=== PATIENT | female | born 1935 | race Caucasian/White ===

== ENCOUNTER 2017-11-09 11:13 | Day surgery (SDC) | payer MEDICARE, BC ==
[~2017-11-09] VITALS: Ht 152.4 cm; Wt 67.4 kg
[2017-11-09] MEDS ORDERED: normal saline 1000ml 1,000 ML IV ONE (11:35)
[2017-11-09 11:40] VITALS: BP 144/44
[2017-11-09 12:05] LABS: BASOPHILS % (AUTO) 0.3 % (0-1); EOSINOPHILS # (AUTO) 0.1 X10'3 (0-0.9); EOSINOPHILS % (AUTO) 1.5 % (0-6); HEMATOCRIT 32.8 % (35.0-45.0); HEMOGLOBIN 11.1 g/dl (12.0-16.0); LYMPHOCYTES # (AUTO) 1.3 X10'3 (1.1-4.8); LYMPHOCYTES % (AUTO) 17.1 % (21-51); MEAN CORPUSCULAR HEMOGLOBIN 30.7 PG (27.0-31.0); MEAN CORPUSCULAR HGB CONC 33.9 % (33.0-36.5); MEAN CORPUSCULAR VOLUME 90.7 FL (78-98); MEAN PLATELET VOLUME 7.4 FL (7.4-10.4); MONOCYTES # (AUTO) 0.4 X10'3 (0-0.9); MONOCYTES % (AUTO) 5.9 % (2-12); NEUTROPHILS # (AUTO) 5.6 X10'3 (1.8-7.7); NEUTROPHILS % (AUTO) 75.2 % (42-75); PLATELET COUNT 204 X10'3 (140-440); RED BLOOD COUNT 3.61 X10'6 (4.20-5.60); RED CELL DISTRIBUTION WIDTH 13.5 % (11.5-14.5); WHITE BLOOD COUNT 7.5 X10'3 (4.5-11.0)
[2017-11-09 12:17] LABS: ALBUMIN 3.8 G/DL (3.4-5.0); ANION GAP 13 (8-16); BLOOD UREA NITROGEN 32 MG/DL (7-18); BUN/CREATININE RATIO 18.8 (6.6-38.0); CALCIUM 9.1 MG/DL (8.5-10.1); CHLORIDE 106 MMOL/L (99-107); GLUCOSE 106 MG/DL (70-104); POTASSIUM 5.4 MMOL/L (3.5-5.1); SODIUM 142 MMOL/L (135-145); TOTAL CARBON DIOXIDE 23.1 MMOL/L (24-32); eGFR 29 ML/MIN
[2017-11-09] MEDS ORDERED: iohexol 350MG/ML 100ml bottle IV ONE (13:44)
[2017-11-09] MEDS ORDERED: iohexol 350 MG/ML 50ML vial IV ONE (13:44)
[2017-11-09 14:20] VITALS: BP 147/58
[2017-11-09 16:20] VITALS: BP 135/62
[2017-11-09] MEDS ORDERED: ACET1TAB12 PO (16:30)
[2017-11-09] MEDS ORDERED: AMLO1CAP PO (16:30)
[2017-11-09] MEDS ORDERED: AMIO200T57 PO (16:30)
[2017-11-09] MEDS ORDERED: CHOL10002 PO (16:30)
[2017-11-09] MEDS ORDERED: FURO-150 PO (16:30)
[2017-11-09] MEDS ORDERED: APIX5TAB3 PO (16:30)
[2017-11-09] MEDS ORDERED: ALBU8.5H8 INH (16:30)
[2017-11-09] MEDS ORDERED: BUDE10.22 INH (16:30)
[2017-11-09] MEDS ORDERED: ATOR40TA PO (16:30)
[2017-11-09] MEDS ORDERED: LORA1TAB PO (16:30)
== END 2017-11-09 16:20 | disposition home or self-care (01) ==
LOC: SSTAY O 11:13
PROVIDERS: ATTEND Radiology Vascular & Interventional Radiology
DX: I73.9 Peripheral vascular disease, unspecified (principal); I10 Essential (primary) hypertension; Z86.73 Personal history of transient ischemic attack (TIA), and cerebral infarction without residual deficits; E78.5 Hyperlipidemia, unspecified; M81.0 Age-related osteoporosis without current pathological fracture
CPT/HCPCS: 36415; 75635; 80048; 85025; Q9967

== ENCOUNTER 2018-05-10 05:59 | Day surgery (SDC) | payer MEDICARE, BC ==
[2018-05-09 11:22] LABS: BASOPHILS % (AUTO) 0.3 % (0-1); EOSINOPHILS # (AUTO) 0.2 X10'3 (0-0.9); EOSINOPHILS % (AUTO) 3.1 % (0-6); HEMOGLOBIN 11.4 g/dl (12.0-16.0); LYMPHOCYTES # (AUTO) 1.2 X10'3 (1.1-4.8); LYMPHOCYTES % (AUTO) 16.8 % (21-51); MEAN CORPUSCULAR HEMOGLOBIN 30.2 PG (27.0-31.0); MEAN CORPUSCULAR HGB CONC 33.6 % (33.0-36.5); MEAN CORPUSCULAR VOLUME 89.8 FL (78-98); MEAN PLATELET VOLUME 7.4 FL (7.4-10.4); MONOCYTES # (AUTO) 0.5 X10'3 (0-0.9); MONOCYTES % (AUTO) 6.6 % (2-12); NEUTROPHILS # (AUTO) 5.2 X10'3 (1.8-7.7); NEUTROPHILS % (AUTO) 73.2 % (42-75); PLATELET COUNT 229 X10'3 (140-440); RED BLOOD COUNT 3.78 X10'6 (4.20-5.60); WHITE BLOOD COUNT 7.2 X10'3 (4.5-11.0)
[2018-05-09 11:34] LABS: PARTIAL THROMBOPLASTIN TIME 26 SECONDS (22-32); PROTHROMBIN TIME 10.2 SECONDS (9.0-12.0)
[2018-05-09 11:38] LABS: ALBUMIN 3.8 G/DL (3.4-5.0); ANION GAP 7 (8-16); BLOOD UREA NITROGEN 26 MG/DL (7-18); BUN/CREATININE RATIO 16.4 (6.6-38.0); CALCIUM 9.4 MG/DL (8.5-10.1); CHLORIDE 108 MMOL/L (99-107); CREATININE 1.59 MG/DL (0.40-0.90); GLUCOSE 112 MG/DL (70-104); POTASSIUM 5.4 MMOL/L (3.5-5.1); SODIUM 141 MMOL/L (135-145); TOTAL CARBON DIOXIDE 26.3 MMOL/L (24-32); eGFR 31 ML/MIN
[2018-05-10] VITALS (18 sets, daily range): BP systolic 99–160; BP diastolic 39–77
[~2018-05-10] VITALS: Ht 152.4 cm; Wt 65.5 kg
[~2018-05-10 05:59] MED LIST: ACET1TAB12 PO; ALBU8.5H8 INH; AMIO200T40 PO; AMLO1CAP PO; APIX5TAB3 PO; ATOR40TA PO; BUDE10.22 INH; CHOL10002 PO; FURO-150 PO; LORA1TAB PO
[2018-05-10] MEDS ORDERED: ceFAZolin 1,000 MG in NS 100ML IVPB IV ONE (06:30)
[2018-05-10] MEDS ORDERED: midazolam 2 mg/2 ml injection ONE ×2 (07:29→08:30)
[2018-05-10] MEDS ORDERED: ceFAZolin 1GM/D5W- ADD-VANTAGE 50 ML IV ONE (07:30)
[2018-05-10] MEDS ORDERED: ceFAZolin 1000mg inj ONE (07:30)
[2018-05-10] MEDS ORDERED: lidocaine 1%/epinephrine 1:100,000 injection 50ml vial ONE (07:30)
[2018-05-10] MEDS ORDERED: fentaNYL/PF 50MCG/1 ML 2ML syringe ONE ×2 (07:30→09:16)
[2018-05-10] MEDS ORDERED: verapamil 2.5 mg/ml inj IV ONE (08:34)
[2018-05-10] MEDS ORDERED: cephalexin 250mg capsule PO SCH (10:24)
[2018-05-10] MEDS ORDERED: HYDROcodone/acetaminophen 5mg/325mg tablet PO PRN (12:10)
[2018-05-10] MEDS ORDERED: HYDROcodone/acetaminophen 10/325mg tab PO PRN (12:10)
[2018-05-10] MEDS ORDERED: normal saline 500ml IV soln 400 ML IV ONE (12:15)
[2018-05-10] MEDS ORDERED: potassium Cl 20 mEq SR tablet PO STA (13:07)
[2018-05-10] MEDS ORDERED: sodium polystyrene sulfonate 15gm/60ml oral suspension PO ONE (13:15)
[2018-05-10] MEDS ORDERED: ceFAZolin 1GM/D5W- ADD-VANTAGE 50 ML IV SCH (13:50)
[2018-05-10] MEDS ORDERED: ondansetron/PF 4mg/2ml inj IV ONE (14:30)
== END 2018-05-10 17:00 | disposition home or self-care (01) ==
LOC: SSTAY O 05:59
PROVIDERS: ATTEND Internal Medicine Cardiovascular Disease
DX: I49.5 Sick sinus syndrome (principal); I25.10 Atherosclerotic heart disease of native coronary artery without angina pectoris; J44.9 Chronic obstructive pulmonary disease, unspecified; E78.5 Hyperlipidemia, unspecified; E11.9 Type 2 diabetes mellitus without complications; I47.1 Supraventricular tachycardia; I48.0 Paroxysmal atrial fibrillation; I11.0 Hypertensive heart disease with heart failure; I50.30 Unspecified diastolic (congestive) heart failure; M19.90 Unspecified osteoarthritis, unspecified site; M81.0 Age-related osteoporosis without current pathological fracture; Z86.73 Personal history of transient ischemic attack (TIA), and cerebral infarction without residual deficits; Z79.891 Long term (current) use of opiate analgesic; Z86.79 Personal history of other diseases of the circulatory system; Z79.01 Long term (current) use of anticoagulants; Z87.891 Personal history of nicotine dependence; Z90.710 Acquired absence of both cervix and uterus; Z90.49 Acquired absence of other specified parts of digestive tract; Z79.899 Other long term (current) drug therapy; Z98.890 Other specified postprocedural states
CPT/HCPCS: 33208; 36415; 71046; 80048; 83735; 85025; 85610; 85730; 93005; 99152; 99153; A4565; C1785; C1894; C1898; J0690; J2250; J2405; J3010; J3490; J7030

== ENCOUNTER 2019-01-28 15:13 | Emergency (ER) | payer MEDICARE, BC ==
[~2019-01-28] VITALS: Ht 152.4 cm; Wt 63.0 kg
[2019-01-28 15:54] LABS: BASOPHILS % (AUTO) 0.5 % (0-1); EOSINOPHILS # (AUTO) 0.1 X10'3 (0-0.9); EOSINOPHILS % (AUTO) 1.6 % (0-6); HEMATOCRIT 32.2 % (35.0-45.0); HEMOGLOBIN 10.7 g/dl (12.0-16.0); LYMPHOCYTES # (AUTO) 1.5 X10'3 (1.1-4.8); LYMPHOCYTES % (AUTO) 20.4 % (21-51); MEAN CORPUSCULAR HEMOGLOBIN 30.2 PG (27.0-31.0); MEAN CORPUSCULAR HGB CONC 33.1 g/dL (33.0-36.5); MEAN CORPUSCULAR VOLUME 91.2 FL (78-98); MEAN PLATELET VOLUME 7.6 FL (7.4-10.4); MONOCYTES # (AUTO) 0.6 X10'3 (0-0.9); NEUTROPHILS # (AUTO) 5.1 X10'3 (1.8-7.7); NEUTROPHILS % (AUTO) 69.5 % (42-75); PLATELET COUNT 178 X10'3 (140-440); RED BLOOD COUNT 3.53 X10'6 (4.20-5.60); RED CELL DISTRIBUTION WIDTH 14.4 % (11.5-14.5); WHITE BLOOD COUNT 7.3 X10'3 (4.5-11.0)
[2019-01-28 15:57] LABS: ALANINE AMINOTRANSFERASE 24 U/L (12-78); ALBUMIN 3.5 G/DL (3.4-5.0); ALBUMIN/GLOBULIN RATIO 1.2 (1.1-1.5); ALKALINE PHOSPHATASE 57 IU/L (46-116); ANION GAP 8 (8-16); ASPARTATE AMINO TRANSFERASE 17 U/L (10-37); BILIRUBIN,TOTAL 0.3 MG/DL (0.1-1.0); BLOOD UREA NITROGEN 32 MG/DL (7-18); BUN/CREATININE RATIO 17.9 (6.6-38.0); CALCIUM 8.9 MG/DL (8.5-10.1); CHLORIDE 107 MMOL/L (99-107); CREATININE 1.79 MG/DL (0.40-0.90); GLUCOSE 96 MG/DL (70-104); POTASSIUM 4.8 MMOL/L (3.5-5.1); SODIUM 139 MMOL/L (135-145); TOTAL CARBON DIOXIDE 23.6 MMOL/L (24-32); TOTAL PROTEIN 6.4 G/DL (6.4-8.2); eGFR 27 ML/MIN
[2019-01-28 16:13] VITALS: BP 149/58
--- NOTE | 2019-01-28 16:23 | NUR ---
PATIENT AMBULATED TO ROOM FROM LOBBY WITH STEADY GAIT. FRIEND AT BEDSIDE. NAZ HILTON AT BEDSIDE. US AT BEDSIDE. PATIENT DON GOWN.
== END 2019-01-28 18:14 | disposition home or self-care (01) ==
LOC: ER 15:14
DX: R60.0 Localized edema (principal); Z79.899 Other long term (current) drug therapy; Z98.890 Other specified postprocedural states
CPT/HCPCS: 36415; 80053; 85025; 93922; 93926; 93971; 99284

== ENCOUNTER 2019-10-18 15:31 | Emergency (ER) | payer MEDICARE, BC ==
[~2019-10-18] VITALS: Ht 152.4 cm; Wt 61.8 kg
[~2019-10-18 15:31] MED LIST changes: -AMIO200T40 PO; +AMIO200T61 PO
[2019-10-18 16:20] LABS: BASOPHILS # (AUTO) 0.1 X10'3 (0-0.2); BASOPHILS % (AUTO) 0.8 % (0-1); EOSINOPHILS % (AUTO) 0.5 % (0-6); HEMATOCRIT 39.4 % (35.0-45.0); HEMOGLOBIN 13.2 g/dl (12.0-16.0); LYMPHOCYTES # (AUTO) 1.7 X10'3 (1.1-4.8); LYMPHOCYTES % (AUTO) 20.3 % (21-51); MEAN CORPUSCULAR HEMOGLOBIN 30.3 PG (27.0-31.0); MEAN CORPUSCULAR HGB CONC 33.4 g/dL (33.0-36.5); MEAN CORPUSCULAR VOLUME 90.4 FL (78-98); MEAN PLATELET VOLUME 7.3 FL (7.4-10.4); MONOCYTES # (AUTO) 0.7 X10'3 (0-0.9); MONOCYTES % (AUTO) 8.4 % (2-12); NEUTROPHILS # (AUTO) 5.8 X10'3 (1.8-7.7); PLATELET COUNT 267 X10'3 (140-440); RED BLOOD COUNT 4.36 X10'6 (4.20-5.60); RED CELL DISTRIBUTION WIDTH 13.8 % (11.5-14.5); WHITE BLOOD COUNT 8.3 X10'3 (4.5-11.0)
[2019-10-18 16:31] LABS: ALANINE AMINOTRANSFERASE 34 U/L (12-78); ALBUMIN 3.9 G/DL (3.4-5.0); ALBUMIN/GLOBULIN RATIO 1.3 (1.1-1.5); ALKALINE PHOSPHATASE 58 IU/L (46-116); ANION GAP 7 (8-16); ASPARTATE AMINO TRANSFERASE 27 U/L (10-37); BILIRUBIN,TOTAL 0.4 MG/DL (0.1-1.0); BLOOD UREA NITROGEN 28 MG/DL (7-18); BUN/CREATININE RATIO 9.8 (6.6-38.0); CHLORIDE 101 MMOL/L (99-107); CREATININE 2.85 MG/DL (0.40-0.90); GLUCOSE 102 MG/DL (70-104); LIPASE 123 U/L (73-393); POTASSIUM 4.5 MMOL/L (3.5-5.1); SODIUM 135 MMOL/L (135-145); TOTAL CARBON DIOXIDE 26.7 MMOL/L (24-32); TOTAL PROTEIN 6.8 G/DL (6.4-8.2); eGFR 16 ML/MIN
[2019-10-18] MEDS ORDERED: normal saline 1000ML IV soln IVB ONE (16:40)
--- NOTE | 2019-10-18 17:07 | NUR ---
back from ct in stable condition
[2019-10-18] MEDS ORDERED: LIDOcaine 5% patch TP STA (17:49)
[2019-10-18 18:49] VITALS: BP 145/64
== END 2019-10-18 18:48 | disposition home or self-care (01) ==
LOC: ER 15:31
DX: K83.8 Other specified diseases of biliary tract (principal); N18.4 Chronic kidney disease, stage 4 (severe); M54.5 Low back pain; I48.91 Unspecified atrial fibrillation; I25.10 Atherosclerotic heart disease of native coronary artery without angina pectoris; E78.00 Pure hypercholesterolemia, unspecified; E11.22 Type 2 diabetes mellitus with diabetic chronic kidney disease; I12.9 Hypertensive chronic kidney disease with stage 1 through stage 4 chronic kidney disease, or unspecified chronic kidney disease; Z95.0 Presence of cardiac pacemaker; Z98.890 Other specified postprocedural states; Z86.73 Personal history of transient ischemic attack (TIA), and cerebral infarction without residual deficits; Z79.01 Long term (current) use of anticoagulants; Z79.899 Other long term (current) drug therapy
CPT/HCPCS: 36415; 74176; 80053; 83690; 85025; 85610; 99284; J7030

== ENCOUNTER 2021-11-09 11:00 | Outpatient (CLI) | payer MEDICARE, BC ==
[~2021-11-09 11:00] MED LIST changes: +ALBU8.5H17 INH; -ALBU8.5H8 INH
[2021-11-09 12:18] LABS: ALBUMIN 3.8 G/DL (3.4-5.0); ANION GAP 8 (8-16); BLOOD UREA NITROGEN 47 MG/DL (7-18); BUN/CREATININE RATIO 24.7 (6.6-38.0); CHLORIDE 107 MMOL/L (99-107); GLUCOSE 100 MG/DL (70-104); POTASSIUM 5.5 MMOL/L (3.5-5.1); SODIUM 140 MMOL/L (135-145); TOTAL CARBON DIOXIDE 25.4 MMOL/L (24-32); eGFR 25 ML/MIN
== END 2021-11-09 23:59 | disposition home or self-care (01) ==
LOC: LAB 11:00
PROVIDERS: ATTEND Internal Medicine Cardiovascular Disease
DX: R06.02 Shortness of breath (principal)
CPT/HCPCS: 36415; 80048; 83880

== ENCOUNTER 2022-01-31 20:51 | Inpatient (IN) | payer MEDICARE, BC ==
[~2022-01-31] VITALS: Ht 154.9 cm; Wt 61.4 kg
[2022-01-31] MEDS ORDERED: normal saline 1000ML IV soln IVB ONE (22:20)
[2022-01-31 22:43] LABS: BASOPHILS % (AUTO) 0.5 % (0-1); EOSINOPHILS # (AUTO) 0.1 X10'3 (0-0.9); EOSINOPHILS % (AUTO) 1.4 % (0-6); HEMATOCRIT 34.2 % (35.0-45.0); HEMOGLOBIN 11.1 g/dl (12.0-16.0); LYMPHOCYTES # (AUTO) 1.3 X10'3 (1.1-4.8); LYMPHOCYTES % (AUTO) 16.5 % (21-51); MEAN CORPUSCULAR HEMOGLOBIN 30.2 PG (27.0-31.0); MEAN CORPUSCULAR HGB CONC 32.6 g/dL (33.0-36.5); MEAN CORPUSCULAR VOLUME 92.7 FL (78-98); MEAN PLATELET VOLUME 7.2 FL (7.4-10.4); MONOCYTES # (AUTO) 0.7 X10'3 (0-0.9); MONOCYTES % (AUTO) 8.6 % (2-12); NEUTROPHILS # (AUTO) 5.6 X10'3 (1.8-7.7); PLATELET COUNT 162 X10'3 (140-440); RED BLOOD COUNT 3.69 X10'6 (4.20-5.60); RED CELL DISTRIBUTION WIDTH 14.1 % (11.5-14.5); WHITE BLOOD COUNT 7.7 X10'3 (4.5-11.0)
[2022-01-31] MEDS: morphine 2 MG/ML inj. syringe IV PRN (22:49)
[2022-01-31 22:55] LABS: ALANINE AMINOTRANSFERASE 26 U/L (12-78); ALBUMIN 3.5 G/DL (3.4-5.0); ALBUMIN/GLOBULIN RATIO 1.2 (1.1-1.5); ALKALINE PHOSPHATASE 48 IU/L (46-116); ANION GAP 14 (8-16); ASPARTATE AMINO TRANSFERASE 25 U/L (10-37); BILIRUBIN,TOTAL 0.3 MG/DL (0.1-1.0); BLOOD UREA NITROGEN 42 MG/DL (7-18); BUN/CREATININE RATIO 18.3 (6.6-38.0); CHLORIDE 107 MMOL/L (99-107); GLUCOSE 89 MG/DL (70-104); POTASSIUM 4.7 MMOL/L (3.5-5.1); SODIUM 140 MMOL/L (135-145); TOTAL CARBON DIOXIDE 19.2 MMOL/L (24-32); TOTAL PROTEIN 6.5 G/DL (6.4-8.2); eGFR 20 ML/MIN
[2022-01-31 23:54] LABS: CLARITY,URINE CLEAR (Clear); GLUCOSE, URINE NEGATIVE (Neg); KETONES,URINE NEGATIVE (Neg); LEUKOCYTE ESTERASE ,URINE NEGATIVE (Neg); NITRITES, URINE NEGATIVE (Neg); OCCULT BLOOD,URINE NEGATIVE (Neg); PROTEIN,URINE NEGATIVE (Neg); UROBILINOGEN,URINE 0.2 E.U/dL (0.2-1.0)
[2022-02-01] MEDS: morphine 2 MG/ML inj. syringe IV PRN ×6 (00:12→17:38)
[2022-02-01 00:16] LABS: COLOR,URINE STRAW (Yellow); UA COLLECTION TYPE OTHER
[2022-02-01] MEDS ORDERED: amox tr/potassium clavulanate 875/125mg TAB PO ONE (01:25)
--- NOTE | 2022-02-01 01:41 | NUR ---
DID NOT GIVE AUGMENTIN. MD REPORTED ORDER WAS PLACED ON ACCIDENT.
[2022-02-01] MEDS ORDERED: acetaminophen 325mg tablet PO PRN ×2 (02:10)
[2022-02-01] MEDS ORDERED: morphine 2 MG/ML inj. syringe IV PRN (02:10)
[2022-02-01] MEDS ORDERED: normal saline 1000ml 1,000 ML IV SCH (02:15)
[2022-02-01] MEDS: ondansetron/PF 4mg/2ml inj IV PRN ×3 (06:03→19:35)
--- NOTE | 2022-02-01 06:25 | NUR ---
Report from AMBERLY Green. Pt sleeping, no apparent distress or needs at this time.
--- NOTE | 2022-02-01 07:24 | NUR ---
Assisted pt on bedpan. Noticed audible wheezing, pt states she use to be on an inhaler and needs a new one.
--- NOTE | 2022-02-01 07:30 | NUR ---
Helped pt on bedpan. Need help moving pt up. Will get help to move her up.
--- NOTE | 2022-02-01 07:34 | NUR ---
Pt moved up in bed. Pt requesting pain medication for headache and injuries, and ice chips. Talked with pt's son and updated on plan of care.
--- NOTE | 2022-02-01 07:45 | NUR ---
Went to give pt Tylenol and pt was sleeping, no apparent distress or needs.
--- NOTE | 2022-02-01 07:52 | NUR ---
paged for request for RT eval and treat.
--- NOTE | 2022-02-01 08:30 | NUR ---
Pt refused breakfast. Stated she wasn't hungry
[2022-02-01] MEDS: HYDROcodone/acetaminophen 5mg/325mg tablet PO PRN ×2 (08:42→15:18)
[2022-02-01] MEDS: docusate sod 100mg capsule PO SCH ×2 (08:53→20:39)
[2022-02-01] MEDS: furosemide 20 MG/2 ML vial IV SCH (08:53)
--- NOTE | 2022-02-01 09:42 | NUR ---
patient in the room asleep.
[2022-02-01] MEDS ORDERED: LEVO88TA7 PO (09:52)
[2022-02-01] MEDS ORDERED: ATOR40TA72 PO (09:52)
[2022-02-01] MEDS ORDERED: METO-384 PO (09:52)
[2022-02-01] MEDS ORDERED: FURO20TA4 PO (09:52)
[2022-02-01] MEDS ORDERED: APIX2.5T PO (09:52)
[2022-02-01] MEDS ORDERED: AMIO200T61 PO (09:52)
--- NOTE | 2022-02-01 09:59 | NUR ---
Assisted pt up in bed with bedpan and moved her up with tech. Pt tires easily, and gets short of breath quickly when moving around on her own. Pt states she is still in pain, left leg more swollen than right. Admitting doctor has been in to see pt already and ordered RT eval and tx plus extra pain medication.
[2022-02-01] MEDS ORDERED: FURO-150 PO (11:40)
--- NOTE | 2022-02-01 12:19 | NUR ---
Pt turned, ice pack to left knee, pillows provided to pad her sore areas. Will call MD for pain management.
[2022-02-01] MEDS ORDERED: AMLO1CAP5 PO (12:31)
[2022-02-01] MEDS ORDERED: ALEN70TA80 PO (12:31)
--- NOTE | 2022-02-01 13:01 | NUR ---
Echo at bedside, assisted pt on bedpan again, 180ml out.
--- NOTE | 2022-02-01 14:47 | NUR ---
Pt sleeping, no apparent distress or needs.
--- NOTE | 2022-02-01 15:27 | NUR ---
Pt didn't want to eat lunch (just awoke from 2 hr nap). Only ate fruit cup. Pt was requesting tea with sweet & low, but none in ER. Pt continues to be uncomfortable when awake. Frustrated that pain medication doesn't take her pain completely away, only reduces it. Pt tearful and upset. Assisted to bedpan, repositioned pt with pillows, and provided ice water per request
--- NOTE | 2022-02-01 15:35 | NUR ---
received report from AMBERLY Adams. awaiting patient arrival.
--- NOTE | 2022-02-01 16:00 | NUR ---
patient arrived to the floor. VSS.
[2022-02-01 18:00] VITALS: BP 119/42
--- NOTE | 2022-02-01 18:12 | NUR ---
Problems reprioritized. Patient report given, questions answered & plan of care reviewed with AMBERLY Cheng.
[2022-02-01] MEDS: budesonide 0.5mg/2ml UD nebule IH SCH (20:25)
[2022-02-01] MEDS: apixaban 2.5mg tablet PO SCH (20:39)
[2022-02-01 22:00] VITALS: BP 123/56
[2022-02-02] VITALS (7 sets, daily range): BP systolic 118–141; BP diastolic 32–50
[2022-02-02] MEDS: HYDROcodone/acetaminophen 5mg/325mg tablet PO PRN ×2 (05:28→16:40)
[2022-02-02 06:35] LABS: BASOPHILS % (AUTO) 0.3 % (0-1); EOSINOPHILS % (AUTO) 0.3 % (0-6); HEMATOCRIT 30.7 % (35.0-45.0); LYMPHOCYTES # (AUTO) 0.7 X10'3 (1.1-4.8); LYMPHOCYTES % (AUTO) 10.1 % (21-51); MEAN CORPUSCULAR HEMOGLOBIN 31.1 PG (27.0-31.0); MEAN CORPUSCULAR HGB CONC 32.7 g/dL (33.0-36.5); MEAN CORPUSCULAR VOLUME 94.9 FL (78-98); MEAN PLATELET VOLUME 7.5 FL (7.4-10.4); MONOCYTES # (AUTO) 0.7 X10'3 (0-0.9); MONOCYTES % (AUTO) 9.6 % (2-12); NEUTROPHILS # (AUTO) 5.9 X10'3 (1.8-7.7); NEUTROPHILS % (AUTO) 79.7 % (42-75); PLATELET COUNT 135 X10'3 (140-440); RED BLOOD COUNT 3.23 X10'6 (4.20-5.60); RED CELL DISTRIBUTION WIDTH 14.2 % (11.5-14.5); WHITE BLOOD COUNT 7.4 X10'3 (4.5-11.0)
[2022-02-02 06:44] LABS: ALBUMIN 3.1 G/DL (3.4-5.0); ANION GAP 9 (8-16); BLOOD UREA NITROGEN 29 MG/DL (7-18); BUN/CREATININE RATIO 15.2 (6.6-38.0); CALCIUM 8.3 MG/DL (8.5-10.1); CHLORIDE 108 MMOL/L (99-107); CREATININE 1.91 MG/DL (0.40-0.90); GLUCOSE 116 MG/DL (70-104); POTASSIUM 4.9 MMOL/L (3.5-5.1); SODIUM 138 MMOL/L (135-145); TOTAL CARBON DIOXIDE 21.4 MMOL/L (24-32); eGFR 25 ML/MIN
--- NOTE | 2022-02-02 06:56 | NUR ---
Patient in room ORTHO 4020. I have received report from Skylar RN and had the opportunity to ask questions and assume patient care.
[2022-02-02] MEDS: furosemide 20 MG/2 ML vial IV SCH (07:58)
[2022-02-02] MEDS: ondansetron/PF 4mg/2ml inj IV PRN (07:58)
[2022-02-02] MEDS ORDERED: levoTHYROXINE 88mcg tablet PO SCH (08:00)
[2022-02-02] MEDS ORDERED: BENAZEPRIL PO SCH (08:00)
[2022-02-02] MEDS ORDERED: AMLODIPINE BESYLATE PO SCH (08:00)
[2022-02-02] MEDS: metoprolol succinate 25mg (24-HOUR) SR. Tablet PO SCH (08:00)
[2022-02-02] MEDS: amLODIPine 5mg tablet PO SCH (08:00)
[2022-02-02] MEDS: lisinopril 10 MG tablet PO SCH (08:00)
[2022-02-02] MEDS: docusate sod 100mg capsule PO SCH ×2 (08:06→20:14)
[2022-02-02] MEDS: amiodarone 200mg tablet PO SCH (08:06)
[2022-02-02] MEDS: atorvastatin 20mg tablet PO SCH (08:07)
[2022-02-02] MEDS: apixaban 2.5mg tablet PO SCH ×2 (08:07→20:14)
--- NOTE | 2022-02-02 08:28 | NUR ---
checked with Dr Rich with regards to BP meds, order given to hold for today r/t current BP (118/32, 116/55) will continue to monitor (with Kiara GAMING)
[2022-02-02] MEDS: budesonide 0.5mg/2ml UD nebule IH SCH ×2 (08:56→19:50)
[2022-02-02] MEDS ORDERED: ondansetron 4mg rapidly disintigrating tab PO PRN (13:55)
--- NOTE | 2022-02-02 15:26 | NUR ---
Documentation reviewed by Clinical Light Rail Train Operator.
--- NOTE | 2022-02-02 18:33 | NUR ---
Problems reprioritized. Patient report given, questions answered & plan of care reviewed with zenaida GAMING.
[2022-02-02] MEDS: albuterol 2.5 MG/3 ML nebule NEB PRN (19:50)
[2022-02-03] VITALS (8 sets, daily range): BP systolic 124–144; BP diastolic 40–70
--- NOTE | 2022-02-03 02:07 | NUR ---
0130 vitals showed patients o2 sat at 90%. I rechecked patients oxygen right after I received vitals. Patients o2 was still at 90 %. Turned patient on her right side and her oxygen level went up to 95 %. Will continue to monitor.
--- NOTE | 2022-02-03 06:19 | NUR ---
Problems reprioritized. Patient report given, questions answered & plan of care reviewed with AMBERLY Craig.
--- NOTE | 2022-02-03 06:22 | NUR ---
Patient in room ORTHO 4020. I have received report from zenaida GAMING and had the opportunity to ask questions and assume patient care.
[2022-02-03 06:43] LABS: ALBUMIN 2.9 G/DL (3.4-5.0); ANION GAP 10 (8-16); BASOPHILS % (AUTO) 0.3 % (0-1); BLOOD UREA NITROGEN 30 MG/DL (7-18); BUN/CREATININE RATIO 15.4 (6.6-38.0); CALCIUM 8.3 MG/DL (8.5-10.1); CHLORIDE 107 MMOL/L (99-107); CREATININE 1.95 MG/DL (0.40-0.90); EOSINOPHILS % (AUTO) 0.7 % (0-6); GLUCOSE 89 MG/DL (70-104); HEMATOCRIT 31.1 % (35.0-45.0); HEMOGLOBIN 10.3 g/dl (12.0-16.0); LYMPHOCYTES # (AUTO) 0.9 X10'3 (1.1-4.8); LYMPHOCYTES % (AUTO) 14.8 % (21-51); MEAN CORPUSCULAR HEMOGLOBIN 31.2 PG (27.0-31.0); MEAN CORPUSCULAR HGB CONC 33.2 g/dL (33.0-36.5); MEAN CORPUSCULAR VOLUME 94.1 FL (78-98); MEAN PLATELET VOLUME 7.4 FL (7.4-10.4); MONOCYTES # (AUTO) 0.6 X10'3 (0-0.9); NEUTROPHILS # (AUTO) 4.6 X10'3 (1.8-7.7); NEUTROPHILS % (AUTO) 74.2 % (42-75); PLATELET COUNT 136 X10'3 (140-440); POTASSIUM 4.9 MMOL/L (3.5-5.1); SODIUM 140 MMOL/L (135-145); TOTAL CARBON DIOXIDE 22.8 MMOL/L (24-32); WHITE BLOOD COUNT 6.1 X10'3 (4.5-11.0); eGFR 24 ML/MIN
[2022-02-03] MEDS: levoTHYROXINE 88mcg tablet PO SCH (07:01)
[2022-02-03] MEDS: apixaban 2.5mg tablet PO SCH ×2 (07:22→20:05)
[2022-02-03] MEDS: atorvastatin 20mg tablet PO SCH (07:22)
[2022-02-03] MEDS: docusate sod 100mg capsule PO SCH ×2 (07:23→20:05)
--- NOTE | 2022-02-03 07:41 | NUR ---
per pt last BM "the morning before I came here" Addendum: 02/03/22 at 0743 by Nicolasa GONZALEZ Amended: Links added.
[2022-02-03] MEDS: lisinopril 10 MG tablet PO SCH (08:00)
[2022-02-03] MEDS: amLODIPine 5mg tablet PO SCH (08:00)
[2022-02-03] MEDS: metoprolol succinate 25mg (24-HOUR) SR. Tablet PO SCH (08:00)
[2022-02-03] MEDS: budesonide 0.5mg/2ml UD nebule IH SCH ×2 (08:22→20:16)
--- NOTE | 2022-02-03 08:38 | NUR ---
pt states no pain while lying still Addendum: 02/03/22 at 0839 by Nicolasa GONZALEZ Amended: Links added.
[2022-02-03] MEDS: HYDROcodone/acetaminophen 5mg/325mg tablet PO PRN (08:55)
[2022-02-03] MEDS: LORazepam 0.5 MG tablet PO PRN ×2 (09:11→20:15)
[2022-02-03] MEDS: amiodarone 200mg tablet PO SCH (09:11)
--- NOTE | 2022-02-03 11:25 | NUR ---
PAGER ID: [phone] MESSAGE: Kiara O/N [id number] lena Mckeon 4020B orthostatic VS negative: BP laying down 142/49 HR 73, sitting 143/45 HR 75, and standing 129/43 HR 74.
--- NOTE | 2022-02-03 18:15 | NUR ---
patient up with PT ambulating with Nursng to BR x3. managed to eat a small amount for lunch. Seen by Dr Rich case management working on placement for patient to [facility]. Son Wicho aware of plan wants to be informed when decision made. Report given to Kristyn GAMING
[2022-02-03] MEDS: albuterol 2.5 MG/3 ML nebule NEB PRN (20:16)
--- NOTE | 2022-02-03 22:17 | NUR ---
Patient's last bowel movement was on 01/30/2022. I asked patient if she would like some Milk of Magnesia. Patient refused.
[2022-02-04 02:00] VITALS: BP 131/47
[2022-02-04 06:00] VITALS: BP 149/80
--- NOTE | 2022-02-04 06:22 | NUR ---
Problems reprioritized. Patient report given, questions answered & plan of care reviewed with AMBERLY Hanson.
--- NOTE | 2022-02-04 06:43 | NUR ---
Patient in room ORTHO 4020. I have received report from AMBERLY Simons and CEDRIC Fox and had the opportunity to ask questions and assume patient care.
[2022-02-04 07:35] LABS: BASOPHILS % (AUTO) 0.3 % (0-1); EOSINOPHILS # (AUTO) 0.1 X10'3 (0-0.9); EOSINOPHILS % (AUTO) 1.3 % (0-6); HEMATOCRIT 32.1 % (35.0-45.0); HEMOGLOBIN 10.6 g/dl (12.0-16.0); LYMPHOCYTES # (AUTO) 0.9 X10'3 (1.1-4.8); LYMPHOCYTES % (AUTO) 13.5 % (21-51); MEAN CORPUSCULAR HEMOGLOBIN 30.5 PG (27.0-31.0); MEAN CORPUSCULAR HGB CONC 33.1 g/dL (33.0-36.5); MEAN CORPUSCULAR VOLUME 92.2 FL (78-98); MEAN PLATELET VOLUME 7.5 FL (7.4-10.4); MONOCYTES # (AUTO) 0.6 X10'3 (0-0.9); MONOCYTES % (AUTO) 9.2 % (2-12); NEUTROPHILS # (AUTO) 4.9 X10'3 (1.8-7.7); NEUTROPHILS % (AUTO) 75.7 % (42-75); PLATELET COUNT 162 X10'3 (140-440); RED BLOOD COUNT 3.49 X10'6 (4.20-5.60); WHITE BLOOD COUNT 6.5 X10'3 (4.5-11.0)
[2022-02-04 07:57] LABS: ANION GAP 11 (8-16); BLOOD UREA NITROGEN 30 MG/DL (7-18); BUN/CREATININE RATIO 15.7 (6.6-38.0); CALCIUM 8.4 MG/DL (8.5-10.1); CHLORIDE 108 MMOL/L (99-107); CREATININE 1.91 MG/DL (0.40-0.90); GLUCOSE 103 MG/DL (70-104); POTASSIUM 5.1 MMOL/L (3.5-5.1); SODIUM 143 MMOL/L (135-145); TOTAL CARBON DIOXIDE 23.8 MMOL/L (24-32); eGFR 25 ML/MIN
[2022-02-04] MEDS: LORazepam 0.5 MG tablet PO PRN ×2 (08:23→19:44)
[2022-02-04] MEDS: metoprolol succinate 25mg (24-HOUR) SR. Tablet PO SCH (08:23)
[2022-02-04] MEDS: atorvastatin 20mg tablet PO SCH (08:24)
[2022-02-04] MEDS: amiodarone 200mg tablet PO SCH (08:24)
[2022-02-04] MEDS: docusate sod 100mg capsule PO SCH ×2 (08:24→19:44)
[2022-02-04] MEDS: lisinopril 10 MG tablet PO SCH (08:24)
[2022-02-04] MEDS: levoTHYROXINE 88mcg tablet PO SCH (08:24)
[2022-02-04] MEDS: amLODIPine 5mg tablet PO SCH (08:24)
[2022-02-04] MEDS: apixaban 2.5mg tablet PO SCH ×2 (08:24→19:44)
[2022-02-04] MEDS: budesonide 0.5mg/2ml UD nebule IH SCH ×2 (09:27→20:05)
[2022-02-04] MEDS: albuterol 2.5 MG/3 ML nebule NEB PRN (09:28)
[2022-02-04 10:00] VITALS: BP 131/52
[2022-02-04 14:00] VITALS: BP_SYST 126; BP_SYST 136; BP_DIAS 46; BP_DIAS 48
[2022-02-04] MEDS: HYDROcodone/acetaminophen 5mg/325mg tablet PO PRN ×2 (14:08→23:24)
[2022-02-04 18:00] VITALS: BP 147/57
--- NOTE | 2022-02-04 18:39 | NUR ---
Problems reprioritized. Patient report given, questions answered & plan of care reviewed with AMBERLY Flowers.
--- NOTE | 2022-02-04 18:40 | NUR ---
Patient in room ORTHO 4020. I have received report from ZOHRA GAMING and had the opportunity to ask questions and assume patient care.
[2022-02-04] MEDS: mag hydrox/Alum hydrox/simeth 30ml oral suspension PO PRN (19:44)
[2022-02-04] MEDS: magnesium hydroxide 30ml (MOM) UD suspension PO PRN (21:51)
[2022-02-04 22:00] VITALS: BP_SYST 128; BP_SYST 134; BP_DIAS 57; BP_DIAS 62
[2022-02-05 05:00] VITALS: BP 136/50
[2022-02-05 06:15] LABS: BASOPHILS % (AUTO) 0.3 % (0-1); EOSINOPHILS # (AUTO) 0.1 X10'3 (0-0.9); LYMPHOCYTES # (AUTO) 0.6 X10'3 (1.1-4.8); LYMPHOCYTES % (AUTO) 7.5 % (21-51); MEAN CORPUSCULAR HEMOGLOBIN 30.9 PG (27.0-31.0); MEAN CORPUSCULAR HGB CONC 33.3 g/dL (33.0-36.5); MEAN PLATELET VOLUME 7.5 FL (7.4-10.4); MONOCYTES # (AUTO) 0.6 X10'3 (0-0.9); MONOCYTES % (AUTO) 7.7 % (2-12); NEUTROPHILS # (AUTO) 6.3 X10'3 (1.8-7.7); NEUTROPHILS % (AUTO) 83.5 % (42-75); PLATELET COUNT 156 X10'3 (140-440); RED BLOOD COUNT 3.23 X10'6 (4.20-5.60); RED CELL DISTRIBUTION WIDTH 13.6 % (11.5-14.5); WHITE BLOOD COUNT 7.5 X10'3 (4.5-11.0)
[2022-02-05 06:23] LABS: ALBUMIN 2.8 G/DL (3.4-5.0); ANION GAP 8 (8-16); BLOOD UREA NITROGEN 38 MG/DL (7-18); BUN/CREATININE RATIO 19.1 (6.6-38.0); CALCIUM 8.3 MG/DL (8.5-10.1); CHLORIDE 105 MMOL/L (99-107); CREATININE 1.99 MG/DL (0.40-0.90); GLUCOSE 107 MG/DL (70-104); SODIUM 138 MMOL/L (135-145); TOTAL CARBON DIOXIDE 24.8 MMOL/L (24-32); eGFR 24 ML/MIN
--- NOTE | 2022-02-05 06:28 | NUR ---
Problems reprioritized. Patient report given, questions answered & plan of care reviewed with ZOHRA GAMING.
--- NOTE | 2022-02-05 06:34 | NUR ---
Patient in room ORTHO 4020. I have received report from AMBERLY Flowers and had the opportunity to ask questions and assume patient care.
[2022-02-05] MEDS: mag hydrox/Alum hydrox/simeth 30ml oral suspension PO PRN (08:25)
[2022-02-05] MEDS: atorvastatin 20mg tablet PO SCH (08:27)
[2022-02-05] MEDS: docusate sod 100mg capsule PO SCH (08:27)
[2022-02-05] MEDS: levoTHYROXINE 88mcg tablet PO SCH (08:27)
[2022-02-05] MEDS: amiodarone 200mg tablet PO SCH (08:27)
[2022-02-05] MEDS: lisinopril 10 MG tablet PO SCH (08:27)
[2022-02-05] MEDS: amLODIPine 5mg tablet PO SCH (08:27)
[2022-02-05] MEDS: apixaban 2.5mg tablet PO SCH ×2 (08:27→20:25)
[2022-02-05] MEDS: metoprolol succinate 25mg (24-HOUR) SR. Tablet PO SCH (08:27)
[2022-02-05 09:00] VITALS: BP_SYST 127; BP_SYST 131; BP_SYST 136; BP_DIAS 46; BP_DIAS 47; BP_DIAS 50
[2022-02-05] MEDS: budesonide 0.5mg/2ml UD nebule IH SCH ×2 (09:00→20:52)
[2022-02-05] MEDS: LORazepam 0.5 MG tablet PO PRN ×2 (09:51→21:08)
[2022-02-05] MEDS: magnesium hydroxide 30ml (MOM) UD suspension PO PRN (09:52)
[2022-02-05 10:00] VITALS: BP 147/57
--- NOTE | 2022-02-05 10:17 | NUR ---
Initial: Pt admit for severe left knee pain secondary to mechanical trauma and DELORIS on top of CKD III. Pt on a heart healthy diet and overall eating poorly with mostly 0-25% PO intake which is improving with 75-100% PO intake of two most recent meals. LBM 01/30. Pt receiving routine bowel care and received PRN MoM 02/04 and 02/05 per EMR. Pt s/p KUB 02/05 which shows moderate constipation and no evidence of intestinal obstruction. D/w dietary to send prunes and prune juice with next meal and power pudding with supper to assist with bowel regularity. Constipation possibly impacting appetite. Recommend liberalizing to regular diet in view of poor PO intake and geriatric age. Will continue to follow closely. Recommendations: 1) Liberalize to regular diet in view of poor PO intake and geriatric age 2) Monitor need for ONS 3) Routine bowel care; utilize PRN bowel care given constipation 4) Scaled weight this admit; subsequent weekly scaled weights Addendum: 02/05/22 at [address] Amended: Links added.
[2022-02-05] MEDS ORDERED: bisacodyl 10mg suppository rectal RC PRN (15:25)
[2022-02-05 18:00] VITALS: BP 135/49
--- NOTE | 2022-02-05 18:32 | NUR ---
Problems reprioritized. Patient report given, questions answered & plan of care reviewed with AMBERLY Green.
--- NOTE | 2022-02-05 18:41 | NUR ---
Patient in room ORTHO 4020. I have received report from ZOHRA GAMING and had the opportunity to ask questions and assume patient care.
[2022-02-05] MEDS: polyethylene glycol 3350 17gm powd pack PO SCH (20:29)
[2022-02-05] MEDS: albuterol 2.5 MG/3 ML nebule NEB PRN (20:52)
[2022-02-05] MEDS ORDERED: docusate sod 250mg capsule PO SCH (21:00)
[2022-02-05 22:00] VITALS: BP 135/42
[2022-02-05 22:07] VITALS: BP_SYST 131; BP_SYST 134; BP_SYST 135; BP_DIAS 42; BP_DIAS 48; BP_DIAS 51
[2022-02-06 06:00] VITALS: BP 121/49
--- NOTE | 2022-02-06 06:15 | NUR ---
received report from skyler estrella Addendum: 02/06/22 at 0642 by Theresa Cloud RN i received report from skyler giang
--- NOTE | 2022-02-06 06:20 | NUR ---
Problems reprioritized. Patient report given, questions answered & plan of care reviewed with SUSANA GAMING.
[2022-02-06 07:13] LABS: BASOPHILS % (AUTO) 0.5 % (0-1); EOSINOPHILS # (AUTO) 0.1 X10'3 (0-0.9); EOSINOPHILS % (AUTO) 1.8 % (0-6); HEMATOCRIT 31.7 % (35.0-45.0); HEMOGLOBIN 10.5 g/dl (12.0-16.0); LYMPHOCYTES # (AUTO) 0.7 X10'3 (1.1-4.8); LYMPHOCYTES % (AUTO) 12.6 % (21-51); MEAN CORPUSCULAR HEMOGLOBIN 30.9 PG (27.0-31.0); MEAN CORPUSCULAR HGB CONC 33.2 g/dL (33.0-36.5); MEAN CORPUSCULAR VOLUME 93.3 FL (78-98); MONOCYTES # (AUTO) 0.6 X10'3 (0-0.9); NEUTROPHILS # (AUTO) 4.2 X10'3 (1.8-7.7); NEUTROPHILS % (AUTO) 74.1 % (42-75); PLATELET COUNT 173 X10'3 (140-440); WHITE BLOOD COUNT 5.6 X10'3 (4.5-11.0)
[2022-02-06 07:24] LABS: ALBUMIN 2.8 G/DL (3.4-5.0); ANION GAP 9 (8-16); BLOOD UREA NITROGEN 46 MG/DL (7-18); BUN/CREATININE RATIO 20.5 (6.6-38.0); CALCIUM 8.5 MG/DL (8.5-10.1); CHLORIDE 107 MMOL/L (99-107); CREATININE 2.24 MG/DL (0.40-0.90); GLUCOSE 97 MG/DL (70-104); POTASSIUM 5.5 MMOL/L (3.5-5.1); SODIUM 142 MMOL/L (135-145); TOTAL CARBON DIOXIDE 25.8 MMOL/L (24-32); eGFR 21 ML/MIN
[2022-02-06] MEDS: docusate sod 100mg capsule PO SCH (07:41)
[2022-02-06] MEDS: levoTHYROXINE 88mcg tablet PO SCH (07:41)
[2022-02-06] MEDS: atorvastatin 20mg tablet PO SCH (07:42)
[2022-02-06] MEDS: apixaban 2.5mg tablet PO SCH ×2 (07:42→20:09)
[2022-02-06] MEDS: amiodarone 200mg tablet PO SCH (07:42)
[2022-02-06] MEDS: lisinopril 10 MG tablet PO SCH (07:43)
[2022-02-06] MEDS: metoprolol succinate 25mg (24-HOUR) SR. Tablet PO SCH (07:44)
[2022-02-06] MEDS: amLODIPine 5mg tablet PO SCH (07:44)
[2022-02-06] MEDS: budesonide 0.5mg/2ml UD nebule IH SCH ×2 (08:32→19:16)
[2022-02-06] MEDS: albuterol 2.5 MG/3 ML nebule NEB PRN ×2 (08:32→19:16)
[2022-02-06] MEDS ORDERED: albuterol 2.5 MG/3 ML nebule CONTNEB ONE (08:35)
[2022-02-06] MEDS ORDERED: SODIUM ZIRCONIUM CYCLOSILICATE 10 GM POWD.PACK PO ONE (08:35)
[2022-02-06] MEDS ORDERED: calcium gluconate inj. 1 GM in normal saline 100ml IV soln 100 ML IV ONE (08:35)
[2022-02-06] MEDS ORDERED: dextrose 50%-water 50ml dispensing syringe IV ONE (08:35)
[2022-02-06] MEDS ORDERED: insulin Lispro (HumaLOG) vial - multi-dose SQ ONE (08:35)
[2022-02-06] MEDS ORDERED: normal saline 1000ml 1,000 ML IV SCH (08:45)
[2022-02-06] MEDS ORDERED: docusate sod 100mg capsule PO SCH (08:47)
[2022-02-06] MEDS ORDERED: CALCIUM GLUC 1gm/50ml NACL,iso 50 ML IV ONE (09:09)
[2022-02-06 10:00] VITALS: BP 137/38
[2022-02-06 10:32] VITALS: BP_SYST 137; BP_SYST 139; BP_DIAS 38; BP_DIAS 42
[2022-02-06 14:00] VITALS: BP 140/79
[2022-02-06] MEDS: LORazepam 0.5 MG tablet PO PRN (14:16)
[2022-02-06 15:04] LABS: ALBUMIN 3.3 G/DL (3.4-5.0); ANION GAP 11 (8-16); BLOOD UREA NITROGEN 41 MG/DL (7-18); BUN/CREATININE RATIO 18.9 (6.6-38.0); CALCIUM 8.8 MG/DL (8.5-10.1); CHLORIDE 104 MMOL/L (99-107); CREATININE 2.17 MG/DL (0.40-0.90); GLUCOSE 94 MG/DL (70-104); SODIUM 137 MMOL/L (135-145); TOTAL CARBON DIOXIDE 22.2 MMOL/L (24-32); eGFR 22 ML/MIN
--- NOTE | 2022-02-06 18:25 | NUR ---
GAVE REPORT TO AMBERLY ORNELAS
[2022-02-06 18:30] VITALS: BP 152/58
--- NOTE | 2022-02-06 18:40 | NUR ---
Patient in room ORTHO 4020. I have received report from AMBERLY Meza and had the opportunity to ask questions and assume patient care. Addendum: 02/06/22 at 1857 by Eligio Seth RN Amended: Links added.
[2022-02-06] MEDS: polyethylene glycol 3350 17gm powd pack PO SCH (20:28)
[2022-02-06 23:00] VITALS: BP_SYST 118; BP_SYST 127; BP_SYST 136; BP_DIAS 44; BP_DIAS 53; BP_DIAS 66
[2022-02-07 06:00] VITALS: BP 128/44
--- NOTE | 2022-02-07 06:09 | NUR ---
Problems reprioritized. Patient report given, questions answered & plan of care reviewed with AMBERLY Ram. Addendum: 02/07/22 at 0609 by Eligio Seth RN Amended: Links added.
[2022-02-07] MEDS: docusate sod 100mg capsule PO SCH (08:00)
[2022-02-07] MEDS: atorvastatin 20mg tablet PO SCH (08:59)
[2022-02-07] MEDS: amiodarone 200mg tablet PO SCH (08:59)
[2022-02-07] MEDS: metoprolol succinate 25mg (24-HOUR) SR. Tablet PO SCH (09:02)
[2022-02-07] MEDS: amLODIPine 5mg tablet PO SCH (09:02)
[2022-02-07] MEDS: apixaban 2.5mg tablet PO SCH (09:02)
[2022-02-07] MEDS: levoTHYROXINE 88mcg tablet PO SCH (09:02)
[2022-02-07] MEDS: budesonide 0.5mg/2ml UD nebule IH SCH (09:46)
[2022-02-07 10:00] VITALS: BP 154/47
[2022-02-07 10:39] LABS: BASOPHILS % (AUTO) 0.5 % (0-1); EOSINOPHILS # (AUTO) 0.1 X10'3 (0-0.9); EOSINOPHILS % (AUTO) 1.2 % (0-6); HEMATOCRIT 35.7 % (35.0-45.0); HEMOGLOBIN 11.5 g/dl (12.0-16.0); LYMPHOCYTES # (AUTO) 0.6 X10'3 (1.1-4.8); LYMPHOCYTES % (AUTO) 11.5 % (21-51); MEAN CORPUSCULAR HEMOGLOBIN 30.7 PG (27.0-31.0); MEAN CORPUSCULAR HGB CONC 32.1 g/dL (33.0-36.5); MEAN CORPUSCULAR VOLUME 95.4 FL (78-98); MEAN PLATELET VOLUME 7.1 FL (7.4-10.4); MONOCYTES # (AUTO) 0.6 X10'3 (0-0.9); MONOCYTES % (AUTO) 11.6 % (2-12); NEUTROPHILS # (AUTO) 4.2 X10'3 (1.8-7.7); NEUTROPHILS % (AUTO) 75.2 % (42-75); PLATELET COUNT 168 X10'3 (140-440); RED BLOOD COUNT 3.74 X10'6 (4.20-5.60); RED CELL DISTRIBUTION WIDTH 14.2 % (11.5-14.5); WHITE BLOOD COUNT 5.6 X10'3 (4.5-11.0)
[2022-02-07] MEDS ORDERED: polyethylene glycol 3350 17gm powd pack PO PRN (12:20)
[2022-02-07 12:45] LABS: ALANINE AMINOTRANSFERASE 69 U/L (12-78); ALBUMIN 3.3 G/DL (3.4-5.0); ALKALINE PHOSPHATASE 94 IU/L (46-116); ANION GAP 16 (8-16); ASPARTATE AMINO TRANSFERASE 32 U/L (10-37); BILIRUBIN,TOTAL 0.3 MG/DL (0.1-1.0); BLOOD UREA NITROGEN 33 MG/DL (7-18); BUN/CREATININE RATIO 17.6 (6.6-38.0); CALCIUM 8.7 MG/DL (8.5-10.1); CHLORIDE 107 MMOL/L (99-107); CREATININE 1.87 MG/DL (0.40-0.90); GLUCOSE 93 MG/DL (70-104); POTASSIUM 5.1 MMOL/L (3.5-5.1); SODIUM 141 MMOL/L (135-145); TOTAL CARBON DIOXIDE 17.8 MMOL/L (24-32); TOTAL PROTEIN 6.7 G/DL (6.4-8.2); eGFR 26 ML/MIN
[2022-02-07] MEDS ORDERED: sodium bicarbonate (8.4%) inj. 150 MEQ in dextrose 5%-water 1,000 ML IV SCH (13:00)
[2022-02-07] MEDS ORDERED: HYDR-3964 PO (13:17)
[2022-02-07] MEDS ORDERED: NOR5T PO (13:17)
--- NOTE | 2022-02-07 14:10 | NUR ---
Per Dr. Foster, he wants patient to receive Bicarb drip to run for at least 4 hours before sending patient home. I called pharmacy to request this as it still not available at this time.
--- NOTE | 2022-02-07 17:55 | NUR ---
Patient requested to have her dinner first before going home tonight.
--- NOTE | 2022-02-07 18:30 | NUR ---
Patient in room ORTHO 4020. I have received report from AMBERLY Ram and had the opportunity to ask questions and assume patient care. Pt has been discharged, is waiting for iv fluids to complete, still needs instructions given. per Yo [facility] arrangements have been made by [facility] and home health agency will contact patient. pt is very anxious to go home, states has been waiting "all day" visitor and ride home at bedside,. Pt eating dinner, guest tray given to visitor. Addendum: 02/07/22 at 1914 by Eligio Seth RN Amended: Links added.
--- NOTE | 2022-02-07 18:50 | NUR ---
all instructions have been given to patient, discussed all medications, new meds and discontinued medications. home health arrangements, f/u appt and labs. pt verbalizes understanding. papers signed and discharged home via w/c to car, visitor with patient to accompany home and orange picker machine operator prescriptions for pt. Addendum: 02/07/22 at 1917 by Eligio Seth RN Amended: Links added.
--- NOTE | 2022-02-07 18:50 | NUR ---
hhc and physical therapy ordered upon discharge. Per Jabari Ram, [facility] is making arrangements and [facility] will contact pt at home in am. No notes found in chart. pt informed. Will leave message with [facility] to make sure arrangements have been made for pt. Pt is very anxious to go home and states has been waiting "all day" does not want to wait any longer. Visitor at bedside will help pt with pickink up meds and any needs pt may hove, pt states. Addendum: 02/07/22 at 2009 by Eligio Seth RN Amended: Links added.
--- NOTE | 2022-02-10 16:38 | NUR ---
Case Management DC follow up:Spoke with patient via telephone. s/p : Patient reports: Denies vertigo, syncope episodes.Verbalizes home health nurse came and assisted her with her medications ; why medications were prescribed , what time to take , and what medications have been discontinued.Patient takes [place] as prescribed for left knee pain..Verbalizes her needs were met with staff; however, with too much waiting time , and not enough staff with her stay at hospital.Verbalizes she needed more explanation with discharge instructions.Verbalizes she followed up appointment with PCP Dr. Ridley yesterday 02/09/22; wanted medication for anxiety but was told no by her
== END 2022-02-07 19:10 | disposition home health service (06) | DRG 682 ==
LOC: ER 20:52 → ED HOLD 02-01 02:10 → ORTHO 4S 02-01 16:00
PROVIDERS: ADMIT Internal Medicine; ATTEND Internal Medicine
DX: N17.0 Acute kidney failure with tubular necrosis (principal); I50.33 Acute on chronic diastolic (congestive) heart failure; E87.2 Acidosis; E86.0 Dehydration; M17.12 Unilateral primary osteoarthritis, left knee; I25.10 Atherosclerotic heart disease of native coronary artery without angina pectoris; N18.30 Chronic kidney disease, stage 3 unspecified; E78.5 Hyperlipidemia, unspecified; E03.9 Hypothyroidism, unspecified; E11.22 Type 2 diabetes mellitus with diabetic chronic kidney disease; E78.00 Pure hypercholesterolemia, unspecified; I12.9 Hypertensive chronic kidney disease with stage 1 through stage 4 chronic kidney disease, or unspecified chronic kidney disease; Z96.659 Presence of unspecified artificial knee joint; E87.5 Hyperkalemia; G89.29 Other chronic pain; I49.5 Sick sinus syndrome; M54.9 Dorsalgia, unspecified; R26.81 Unsteadiness on feet; R26.89 Other abnormalities of gait and mobility; I27.81 Cor pulmonale (chronic); I27.29 Other secondary pulmonary hypertension; Z60.2 Problems related to living alone; I48.0 Paroxysmal atrial fibrillation; I95.1 Orthostatic hypotension; W01.190A Fall on same level from slipping, tripping and stumbling with subsequent striking against furniture, initial encounter; J44.9 Chronic obstructive pulmonary disease, unspecified; K59.00 Constipation, unspecified; Z79.01 Long term (current) use of anticoagulants; Z86.73 Personal history of transient ischemic attack (TIA), and cerebral infarction without residual deficits; Z87.891 Personal history of nicotine dependence; Z90.710 Acquired absence of both cervix and uterus; Z91.81 History of falling; Z95.0 Presence of cardiac pacemaker; Z79.890 Hormone replacement therapy; Y93.89 Activity, other specified; Y99.8 Other external cause status; Y92.009 Unspecified place in unspecified non-institutional (private) residence as the place of occurrence of the external cause; Z79.899 Other long term (current) drug therapy
CPT/HCPCS: 36415; 71045; 73502; 73564; 73660; 74018; 80048; 80053; 81003; 83880; 84443; 85025; 87081; 93005; 93306; 94640; 94760; 96360; 97110; 97116; 97161; 97530; 99285; G0378; J0610; J1815; J1940; J2270; J2405; J3490; J7030; J7070

== ENCOUNTER 2022-03-21 17:37 | Emergency (ER) | payer MEDICARE, BC ==
[~2022-03-21] VITALS: Ht 152.4 cm; Wt 61.8 kg
[~2022-03-21 17:37] MED LIST changes: -ACET1TAB12 PO; -ALBU8.5H17 INH; +ALEN70TA80 PO; -AMLO1CAP PO; +APIX2.5T PO; -APIX5TAB3 PO; -ATOR40TA PO; +ATOR40TA72 PO; -BUDE10.22 INH; -CHOL10002 PO; -FURO-150 PO; +HYDR-3964 PO; +LEVO88TA7 PO; -LORA1TAB PO; +METO-384 PO; +NOR5T PO
[2022-03-21] MEDS: ALBUTEROL INHALER 1 PUFF/90 MCG INHALation IH PRN (19:10)
[2022-03-21] MEDS: BEBTELOVIMAB 175 MG/2 ML VIAL IV ONE (19:39)
[2022-03-21] MEDS: acetaminophen 325mg tablet PO ONE (21:12)
[2022-03-21] MEDS ORDERED: BUDE10.22 INH (23:20)
[2022-03-21 23:48] VITALS: BP 153/45
== END 2022-03-21 22:51 | disposition home or self-care (01) ==
LOC: ER 17:37
DX: U07.1 COVID-19 (principal); R51.9 Headache, unspecified; R50.9 Fever, unspecified; R05.9 Cough, unspecified; I48.91 Unspecified atrial fibrillation; I25.10 Atherosclerotic heart disease of native coronary artery without angina pectoris; E78.00 Pure hypercholesterolemia, unspecified; I12.9 Hypertensive chronic kidney disease with stage 1 through stage 4 chronic kidney disease, or unspecified chronic kidney disease; E11.22 Type 2 diabetes mellitus with diabetic chronic kidney disease; N18.9 Chronic kidney disease, unspecified; G89.29 Other chronic pain; E03.9 Hypothyroidism, unspecified; Z86.73 Personal history of transient ischemic attack (TIA), and cerebral infarction without residual deficits; Z95.0 Presence of cardiac pacemaker; Z60.2 Problems related to living alone; Z98.890 Other specified postprocedural states; Z79.899 Other long term (current) drug therapy
CPT/HCPCS: 71045; 94640; 99284; M0222; Q0222; 94760